=== PATIENT | male | born 1960 | race Caucasian/White ===

== ENCOUNTER 2019-01-25 06:03 | Day surgery (SDC) | payer OTHER ==
[2019-01-24 13:14] VITALS: BMI 29.8
[2019-01-25] MEDS ORDERED: Midazolam HCl 2 mg/2 ml Vial ONE ×2 (06:13→06:19)
[2019-01-25] MEDS ORDERED: Fentanyl 100 MCG/2 ML VIAL ONE ×2 (06:13→06:19)
[2019-01-25] MEDS ORDERED: Lidocaine 1% (PF) 30 ML VIAL ONE (06:19)
[2019-01-25] MEDS ORDERED: Bupivacaine HCl 0.5%/Epinephrine 1:200,000/PF 30 ml Vial ONE ×2 (07:45→10:01)
--- NOTE | 2019-01-25 10:34 | OP ---
DATE OF PROCEDURE: 01/25/2019 PROCEDURE PERFORMED: Right olecranon spur excision. PREOPERATIVE DIAGNOSIS: Osteophyte of right olecranon. POSTOPERATIVE DIAGNOSIS: Osteophyte of right olecranon. COMPLICATIONS: None. ESTIMATED BLOOD LOSS: Minimal. CREDIT INVESTIGATOR: Christian Estrada PA-C IMPLANTS: None. 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 He has had chronic pain related to this. He was indicated for osteophyte excision to relieve pain and restore function. Risks have been reviewed in detail. 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 His correct extremity was marked. He was carried to the operating room. He was positioned supine. General anesthesia was induced. A multidisciplinary time-out was performed. The right upper extremity was prepped and draped in sterile fashion. We began the procedure with posterior incision at the elbow. We dissected down through the subcutaneous tissues. We encountered a large amount of bursitis tissue. This was excised using scissors under sharp dissection. This exposed the underlying triceps tendon. There was a large palpable bony prominence at the triceps insertion. The superficial fibers of the triceps were divided. We then used a rongeur to remove the large osteophyte complex. This was taken back down to normal level of the olecranon. We took an x-ray confirming we removed all bony prominence. At this point, we smoothed the bone with a rasp. We then placed a small amount of bone wax over the bleeding bone. We obtained hemostasis after letting the tourniquet down. We then closed the triceps split with 0 Vicryl suture, followed by 2-0 Vicryl suture, and nicolás for the skin. A sterile dressing was applied. The patient was taken to the recovery room in good condition without complication. Job ID: [id number]
== END 2019-01-25 09:19 | disposition home or self-care (01) ==
LOC: SDC 06:03
PROVIDERS: ATTEND Orthopaedic Surgery
PROC: 0PBK0ZZ Excision of Right Ulna, Open Approach (ICD-10-PCS; principal; 2019-01-25)
DX: M25.721 Osteophyte, right elbow (principal); I10 Essential (primary) hypertension; E78.00 Pure hypercholesterolemia, unspecified; F32.9 Major depressive disorder, single episode, unspecified
CPT/HCPCS: 76000; J0670; J0690; J2001; J2250; J3010

== ENCOUNTER 2023-03-03 10:37 | Outpatient (CLI) | payer BC | END 2023-03-03 10:38 | disposition home or self-care (01) | LOC: ULT 10:37 | PROVIDERS: ATTEND Family Medicine | DX: R10.11 Right upper quadrant pain (principal); K76.89 Other specified diseases of liver; R16.0 Hepatomegaly, not elsewhere classified | CPT/HCPCS: 76705 ==

== ENCOUNTER 2023-03-20 08:42 | Outpatient (CLI) | payer BC ==
[2023-03-20] MEDS ORDERED: Iopamidol 370 76% 100 ML VIAL ONE (09:25)
== END 2023-03-20 08:43 | disposition home or self-care (01) ==
LOC: CT 08:42
PROVIDERS: ATTEND Family Medicine
DX: R93.89 Abnormal findings on diagnostic imaging of other specified body structures (principal); D18.03 Hemangioma of intra-abdominal structures; K83.8 Other specified diseases of biliary tract
CPT/HCPCS: 74170; 82565; Q9967

== ENCOUNTER 2023-07-14 13:53 | Outpatient (CLI) | payer BC | END 2023-07-14 13:54 | disposition home or self-care (01) | LOC: SCSMRI 13:53 | PROVIDERS: ATTEND Family Medicine | DX: M51.34 Other intervertebral disc degeneration, thoracic region (principal); M48.062 Spinal stenosis, lumbar region with neurogenic claudication; M47.814 Spondylosis without myelopathy or radiculopathy, thoracic region; M51.36 Other intervertebral disc degeneration, lumbar region; M47.816 Spondylosis without myelopathy or radiculopathy, lumbar region | CPT/HCPCS: 72146; 72148 ==